=== PATIENT | female | born 1975 | race African-American/Black ===

== ENCOUNTER 2016-05-22 20:32 | Emergency (ER) | payer BC ==
[2016-05-22 20:38] VITALS: BP 130/80; PULSE 92; TEMP 98.9; BMI 24.9
--- NOTE | 2016-05-22 22:58 | PDOC ---
History of Present Illness - General Chief Complaint: Pain Stated Complaint: LEG SWELLING Time Seen by Provider: 05/22/16 22:32 History Source: Patient Exam Limitations: No Limitations - History of Present Illness Initial Comments: 05/22/16 22:53 CC left knee pain post years of daily gym exercise; no other trauma noted Occurred: reports: last week Severity: reports: mild Pain Location: reports: lower extremity (left knee) Past History - Past Medical History Allergies/Adverse Reactions: Allergies Allergy/AdvReac Type Severity Reaction Status Date / Time No Known Allergies Allergy Verified 05/22/16 20:38 Home Medications: Ambulatory Orders NK [No Known Home Medication] 05/22/16 Other medical history: denies - Immunization History Immunization Up to Date: Yes - Psycho/Social/Smoking Cessation Hx Suicidal Ideation: No Smoking History: Never smoked Have you smoked in the past 12 months: No Review of Systems - Review of Systems Constitutional: No: Chills, Fever, Malaise Respiratory: Yes: Cough. No: Symptoms reported : No: Symptoms Reported Musculoskeletal: Yes: Joint Pain, Joint Swelling, Joint Stiffness. No: Back Pain, Muscle Pain Integumentary: No: Symptoms Reported, Erythema *Physical Exam - Vital Signs Last Vital Signs Temp Pulse Resp BP Pulse Ox 98.9 F 92 H 20 130/80 98 05/22/16 20:35 05/22/16 20:35 05/22/16 20:35 05/22/16 20:35 05/22/16 20:35 - Physical Exam General Appearance: Yes: Appropriately Dressed. No: Apparent Distress HEENT: positive: KEYUR, TMs Normal, Pharynx Normal Neck: positive: Supple. negative: Tender, Rigid Respiratory/Chest: positive: Lungs Clear, Normal Breath Sounds Musculoskeletal: positive: Other ( mild STS to left knee; with slight tenderness at lateral joint space) ED Treatment Course - RADIOLOGY Radiology Studies Ordered: Category Date Time Status KNEE 2 POS-LEFT [RAD] Stat Radiology 05/22/16 22:33 Taken *DC/Admit/Observation/Transfer Diagnosis at time of Disposition: Strain of left knee Qualifiers: Encounter type: initial encounter Qualified Code(s): S86.912A - Strain of unspecified muscle(s) and tendon(s) at lower leg level, left leg, initial encounter - Discharge Dispostion Disposition: HOME Condition at time of disposition: Stable Admit: No - Referrals Referrals: Donato Montes De Oca MD [Staff Physician] - - Patient Instructions Additional Instructions: please no gym x 1 week; follow up with Julia Montes De Oca early next week
== END 2016-05-22 23:23 | disposition home or self-care (01) ==
LOC: JERFT 20:32
DX: S86.812A Strain of other muscle(s) and tendon(s) at lower leg level, left leg, initial encounter (principal); X50.0XXA Overexertion from strenuous movement or load, initial encounter; X50.9XXA Other and unspecified overexertion or strenuous movements or postures, initial encounter; Y93.B9 Activity, other involving muscle strengthening exercises; Y92.39 Other specified sports and athletic area as the place of occurrence of the external cause; Y99.8 Other external cause status
CPT/HCPCS: 73560-TC-LT; 99281-25